=== PATIENT | female | born 1990 | race Hispanic/Latino ===

== ENCOUNTER 2018-07-14 18:01 | Emergency (ER) | payer SELFPAY ==
[2018-07-14 18:36] LABS: #Eosinphils 0.1 thou/uL (0.0-0.7); #Lymphocytes 1.7 thou/uL (1.20-3.40); #Monocytes 0.6 thou/uL (0.11-0.59); #Neutrophils 3.6 thou/uL (1.40-6.50); %Basophils 0.4 % (0.0-1.0); %Lymphocytes 28.6 % (21.0-51.0); %Monocytes 9.2 % (0.0-10.0); %Neutrophils 59.8 % (42.0-75.0); Hemoglobin 15.5 g/dL (12.0-16.0); Mean Corpuscular HGB CONC 34.9 g/dL (32.0-36.0); Mean Corpuscular Hemoglobin 30.3 pg (27.0-31.0); Mean Corpuscular Volume 86.7 fL (78.0-98.0); Mean Platelet Volume 7.7 fL (7.4-10.4); Platelet Count 228 thou/uL (130-400); RBC Distribution Width 12.6 % (11.5-14.5); Red Blood Cell (RBC) Count 5.11 mill/uL (4.20-5.40); White Blood Cell (WBC) Count 6.1 thou/uL (4.8-10.8)
[2018-07-14 19:54] LABS: Bilirubin Negative (Negative); Blood, Urine Negative (Negative); Clarity CLEAR (Clear); Glucose, Urine (Dipstick) Negative (Negative); Leukocyte Negative (Negative); Nitrite Negative (Negative); Protein, Urine (Dipstick) Negative (Neg-Trace); Specific Gravity, Urine 1.029 (1.002-1.036); pH, Urine 5.5 (5.0-9.0)
--- NOTE | 2018-07-14 21:19 | ULT ---
PELVIC ULTRASOUND WITH METZGER SCALE AND DOPPLER FLOW IMAGIN07/14/18 Transabdominal and transvaginal pelvic ultrasound performed. INDICATION: Pelvic cramping, vaginal spotting. FINDINGS: There is a presumed gestational sac with internal echogenicity within the uterus. cardiac activ ity is no elicited on this exam. On the basis of crown-rump length gestational age corresponds to an approximate 6 week, 4 day gestation. The ovaries are not well discerned on the basis of this exam due to decreased acoustic penetration of the adnexal regions. No significant free pelvic fluid. IMPRESSION: Findings of an early intrauterine gestation. By sonographic imaging, ranges between 6 and 7 weeks. Fe arcenio cardiac activity is not confirmed. This could therefore relate to failed first trimester pregnanc y. Recommend clinical correlation with followup beta HCG values. Short term imaging followup would al so prove useful to reassess for cardiac activity. Code T POS: [id number]
== END 2018-07-14 21:28 | disposition home or self-care (01) ==
LOC: ERS 18:01
DX: O02.1 Missed abortion (principal); O99.281 Endocrine, nutritional and metabolic diseases complicating pregnancy, first trimester; E03.9 Hypothyroidism, unspecified; Z3A.11 11 weeks gestation of pregnancy
CPT/HCPCS: 76856; 81003; 84702; 85025; 86850; 86900; 86901

== ENCOUNTER 2018-07-20 18:34 | Day surgery (SDC) | payer SELFPAY ==
[2018-07-20 22:53] LABS: #Basophils 0.1 thou/uL (0.0-0.2); #Eosinphils 0.2 thou/uL (0.0-0.7); #Lymphocytes 2.6 thou/uL (1.20-3.40); #Monocytes 0.4 thou/uL (0.11-0.59); #Neutrophils 3.1 thou/uL (1.40-6.50); %Basophils 1.3 % (0.0-1.0); %Eosinophils 2.6 % (0.0-10.0); %Lymphocytes 40.7 % (21.0-51.0); %Monocytes 6.6 % (0.0-10.0); %Neutrophils 48.8 % (42.0-75.0); Hemoglobin 15.1 g/dL (12.0-16.0); Mean Corpuscular HGB CONC 34.3 g/dL (32.0-36.0); Mean Corpuscular Hemoglobin 30.1 pg (27.0-31.0); Mean Corpuscular Volume 87.6 fL (78.0-98.0); Mean Platelet Volume 7.7 fL (7.4-10.4); Platelet Count 231 thou/uL (130-400); RBC Distribution Width 12.8 % (11.5-14.5); Red Blood Cell (RBC) Count 5.02 mill/uL (4.20-5.40); White Blood Cell (WBC) Count 6.4 thou/uL (4.8-10.8)
[2018-07-20 23:20] LABS: ALT (SGPT) 205 U/L (8-55); AST (SGOT) 102 U/L (5-34); Albumin 4.1 g/dL (3.5-5.0); Alkaline Phosphatase 74 U/L (40-150); Anion Gap 14 mmol/L (10-20); BUN (Urea Nitrogen) 12 mg/dL (7.0-18.7); Bilirubin, Total 0.5 mg/dL (0.2-1.2); Calc. Creatinine Clearance 0 mL/min (70-130); Calcium 9.5 mg/dL (7.8-10.44); Carbon Dioxide 22 mmol/L (22-29); Chloride 106 mmol/L (98-107); Estimated GFR-MDRD 80; Globulin 2.8 g/dL (2.4-3.5); Glucose 112 mg/dL (70-105); Potassium 3.9 mmol/L (3.5-5.1); Protein, Total 6.9 g/dL (6.0-8.3); Sodium 138 mmol/L (136-145)
--- NOTE | 2018-07-21 00:03 | ULT ---
TRANSABDOMINAL AND TRANSVAGINAL PELVIC ULTRASOUND: 07/20/18 PROVIDED CLINICAL HISTORY: Evaluate for products of conception. FINDINGS: Comparison is made with the study dated 07/14/18. An intrauterine gestational sac is redemonstrated, containing a yolk sac and pole. There has be en no interval growth in the size of the pole and no heart tones are documented, compatib le with failure. The right and left ovaries appear unremarkable. Color doppler and spectral analysis of the ovarian waveforms demonstrates normal flow. IMPRESSION: Findings compatible with failure. Intrauterine gestational sac persists. POS: CHRISTOPH
[2018-07-21] MEDS ORDERED: Fentanyl 100 MCG/2 ML VIAL ONE ×2 (03:08→04:23)
[2018-07-21] MEDS ORDERED: Midazolam HCl 2 mg/2 ml Vial ONE (03:08)
[2018-07-21] MEDS ORDERED: Meperidine HCl/PF 25 MG/ML VIAL ONE (04:24)
--- NOTE | 2018-07-21 05:46 | OP ---
DATE OF PROCEDURE: 07/21/2018 PREOPERATIVE DIAGNOSES: 1. Missed AB. 2. consistent with 6 weeks. POSTOPERATIVE DIAGNOSES: 1. Missed AB. 2. consistent with 6 weeks. PROCEDURE: Suction D and C. ANESTHESIA: General. ESTIMATED BLOOD LOSS: 500 mL. URINE OUTPUT: 200 mL prior to procedure. COMPLICATIONS: None. SPECIMEN: Products of conception. COUNTS: Correct. CONDITION: Stable to recovery room. DESCRIPTION OF PROCEDURE: The patient is a 28-year-old, G11, P4 female, who presented to the emergency room with heavy cramping for 2 days and diagnosis of missed AB x1 week. The patient presented for evaluation, expectant versus medical versus surgical management were discussed. The patient requested D and C. After providing informed consent, the patient was taken to the operating room where she was placed under general anesthesia and then placed in dorsal lithotomy position with candy-cane stirrups. She was prepared and draped in the normal sterile fashion. Attention was placed vaginally with the use of operative speculum. The cervix was identified and grasped anteriorly with a single-tooth tenaculum. The uterus was then sounded to 11 cm. The cervix was then sequentially dilated to accommodate a 7-Slovenian curved curette. The suction was then adjusted to 45 cm of water. With 3 passes of the suction curette, the contents within the uterine cavity were removed with little difficulty. A sharp curette was then used and uterine cry was confirmed in all 4 quadrants. The suction curette was then used one more time to remove any remaining loose tissue fragments. The patient was noted to be hemostatic with very little bleeding. The single-tooth tenaculum was then removed from the anterior lip of the cervix and the cervix appeared to be hemostatic. At this point, the procedure was completed and the patient was taken out of lithotomy position and sent to the recovery room in stable condition after extubation. Job ID: [id number]
[2018-07-21] MEDS ORDERED: Succinylcholine Chloride 20 MG/ML 10 ml SYRINGE FS ONE (11:12)
[2018-07-21] MEDS ORDERED: Lidocaine 1% PF 5 ML VIAL ONE (11:12)
[2018-07-21] MEDS ORDERED: PROPOFOL 200 MG/20 ML VIAL ONE (11:12)
[2018-07-21] MEDS ORDERED: Dexamethasone 20 MG/5 ML VIAL ONE (11:12)
[2018-07-21] MEDS ORDERED: Ondansetron PF 4 MG/2 ML Vial ONE (11:12)
== END 2018-07-21 ==
LOC: ERS 18:34 → SDC 07-21 03:15 → ERS 07-21 03:16 → SDC 07-21 03:16
PROVIDERS: ATTEND Obstetrics & Gynecology
PROC: 10D17ZZ Extraction of Products of Conception, Retained, Via Natural or Artificial Opening (ICD-10-PCS; principal; 2018-07-21)
DX: O02.1 Missed abortion (principal); E07.9 Disorder of thyroid, unspecified; E66.9 Obesity, unspecified; Z79.899 Other long term (current) drug therapy
CPT/HCPCS: 36415; 76856; 80053; 84702; 85025; 86850; 86900; 86901; 88305; 96374; J1100; J2001; J2175; J2250; J2405; J2704; J3010; J7050

== ENCOUNTER 2018-07-26 07:49 | Emergency (ER) | payer SELFPAY ==
[2018-07-26] MEDS ORDERED: Fentanyl 100 MCG/2 ML VIAL ONE (08:26)
[2018-07-26 08:55] LABS: #Eosinphils 0.1 thou/uL (0.0-0.7); #Lymphocytes 2.8 thou/uL (1.20-3.40); #Monocytes 0.6 thou/uL (0.11-0.59); #Neutrophils 3.1 thou/uL (1.40-6.50); %Basophils 0.7 % (0.0-1.0); %Eosinophils 2.2 % (0.0-10.0); %Lymphocytes 41.9 % (21.0-51.0); %Monocytes 8.9 % (0.0-10.0); %Neutrophils 46.4 % (42.0-75.0); Hemoglobin 13.6 g/dL (12.0-16.0); Mean Corpuscular HGB CONC 32.4 g/dL (32.0-36.0); Mean Corpuscular Hemoglobin 28.3 pg (27.0-31.0); Mean Corpuscular Volume 87.1 fL (78.0-98.0); Mean Platelet Volume 7.8 fL (7.4-10.4); Platelet Count 233 thou/uL (130-400); RBC Distribution Width 12.7 % (11.5-14.5); Red Blood Cell (RBC) Count 4.82 mill/uL (4.20-5.40); White Blood Cell (WBC) Count 6.7 thou/uL (4.8-10.8)
[2018-07-26 09:14] LABS: Anion Gap 11 mmol/L (10-20); BHCG - Serum POSITIVE (NEGATIVE); BUN (Urea Nitrogen) 16 mg/dL (7.0-18.7); Calc. Creatinine Clearance 0 mL/min (70-130); Calcium 9.5 mg/dL (7.8-10.44); Carbon Dioxide 24 mmol/L (22-29); Chloride 108 mmol/L (98-107); Estimated GFR-MDRD 84; Glucose 92 mg/dL (70-105); Pregs Control Background? CLEAR/WHITE (CLR/WHITE); Pregs Control Bar Appear? YES (CONTROL BAR); Sodium 139 mmol/L (136-145)
--- NOTE | 2018-07-26 10:16 | ULT ---
PELVIC ULTRASOUND: Comparison: 07-14-18 History: Status post DNC on 07-21-18 for demise. Technique: Multiplanar grayscale and color doppler images were obtained in a transabdominal and trans vaginal pelvic ultrasound. FINDINGS: There are nabothian cysts seen in the cervix. The uterus is normal in size and appearance without foc al abnormality. The endometrial stripe is normal and measures 8 mm. No residual gestational sac is se en within the uterus. No free fluid is seen in the pelvis. Both ovaries are normal in size and appearance and demonstrate n ormal internal flow. IMPRESSION: Nabothian cysts; otherwise, unremarkable exam. POS: TPC
== END 2018-07-26 10:41 | disposition home or self-care (01) ==
LOC: ERS 07:49
DX: N99.820 Postprocedural hemorrhage of a genitourinary system organ or structure following a genitourinary system procedure (principal); E03.9 Hypothyroidism, unspecified; Z79.899 Other long term (current) drug therapy
CPT/HCPCS: 76856; 80048; 84702; 84703; 85025; 96361; 96374; J3010

== ENCOUNTER 2019-01-15 02:41 | Emergency (ER) | payer SELFPAY ==
[2019-01-15 03:03] LABS: Bilirubin Negative (Negative); Blood, Urine Negative (Negative); Clarity Clear (Clear); Glucose, Urine (Dipstick) Normal (Negative); Leukocyte Negative Leu/uL (Negative); Nitrite Negative (Negative); Protein, Urine (Dipstick) 20 mg/dL (Neg-Trace); Urobilinogen 3 mg/dL (Less than 2)
[2019-01-15 03:09] LABS: Pregnancy Test - Urine (BHCG) POSITIVE (Negative); Pregu Control Background? CLEAR/WHITE (CLR/WHITE); Pregu Control Bar Appear? YES (CONTROL BAR)
[2019-01-15 03:10] LABS: Specific Gravity 1.033 (1.002-1.036)
[2019-01-15] MEDS ORDERED: Ondansetron PF 4 MG/2 ML Vial ONE (03:24)
[2019-01-15 03:41] LABS: #Eosinphils 0.1 thou/uL (0.0-0.7); #Lymphocytes 2.8 thou/uL (1.20-3.40); #Monocytes 0.7 thou/uL (0.11-0.59); #Neutrophils 3.9 thou/uL (1.40-6.50); %Basophils 0.5 % (0.0-1.0); %Eosinophils 1.6 % (0.0-10.0); %Lymphocytes 36.9 % (21.0-51.0); %Monocytes 9.5 % (0.0-10.0); %Neutrophils 51.6 % (42.0-75.0); Hemoglobin 14.1 g/dL (12.0-16.0); Mean Corpuscular HGB CONC 34.7 g/dL (32.0-36.0); Mean Corpuscular Hemoglobin 30.7 pg (27.0-31.0); Mean Corpuscular Volume 88.4 fL (78.0-98.0); Mean Platelet Volume 7.9 fL (7.4-10.4); Platelet Count 218 thou/uL (130-400); RBC Distribution Width 13.2 % (11.5-14.5); Red Blood Cell (RBC) Count 4.61 mill/uL (4.20-5.40); White Blood Cell (WBC) Count 7.5 thou/uL (4.8-10.8)
[2019-01-15 04:00] LABS: ALT (SGPT) 46 U/L (8-55); AST (SGOT) 21 U/L (5-34); Albumin 3.8 g/dL (3.5-5.0); Alkaline Phosphatase 57 U/L (40-150); Anion Gap 12 mmol/L (10-20); BUN (Urea Nitrogen) 10 mg/dL (7.0-18.7); Bilirubin, Total 0.5 mg/dL (0.2-1.2); Calc. Creatinine Clearance 0 mL/min (70-130); Calcium 9.6 mg/dL (7.8-10.44); Carbon Dioxide 24 mmol/L (22-29); Chloride 108 mmol/L (98-107); Estimated GFR-MDRD 79; Globulin 2.5 g/dL (2.4-3.5); Glucose 96 mg/dL (70-105); Potassium 3.8 mmol/L (3.5-5.1); Protein, Total 6.3 g/dL (6.0-8.3); Sodium 140 mmol/L (136-145)
== END 2019-01-15 04:40 | disposition home or self-care (01) ==
LOC: ERS 02:41
DX: O21.9 Vomiting of pregnancy, unspecified (principal); R19.7 Diarrhea, unspecified; O99.281 Endocrine, nutritional and metabolic diseases complicating pregnancy, first trimester; E03.9 Hypothyroidism, unspecified; Z79.899 Other long term (current) drug therapy; Z3A.08 8 weeks gestation of pregnancy
CPT/HCPCS: 36415; 80053; 81003; 81025; 85025; 96361; 96372; 96374; J0500; J2405